=== PATIENT | female | born 1965 | race African-American/Black ===

== ENCOUNTER 2019-09-13 14:17 | Emergency (ER) | payer OTHER ==
[2019-09-13] MEDS ORDERED: ACETAMINOPHEN EXTRA STRENGTH 500 MG TABLET ONE (14:40)
== END 2019-09-13 14:48 | disposition home or self-care (01) ==
LOC: EDH 14:17
DX: U07.1 COVID-19 (principal); B34.9 Viral infection, unspecified
CPT/HCPCS: 36415; 99283; U0003